=== PATIENT | female | born 2000 | race African-American/Black ===

== ENCOUNTER 2023-02-14 17:57 | Emergency (ER) | payer OTHER ==
[~2023-02-14] VITALS: Ht 165.1 cm; Wt 91.0 kg
[2023-02-14 18:09] VITALS: BP 132/76; PULSE 108; RESP 16; TEMP 98.7; O2SAT 100
[2023-02-14] MEDS ORDERED: LIDOCAINE HCL 1% 20ML VIAL (Pyxis) INJ INFIL ONE (21:00)
[2023-02-14] MEDS ORDERED: IBUP-1525 MT (22:51)
[2023-02-14] MEDS ORDERED: TOPUD MT (22:51)
== END 2023-02-14 23:53 | disposition home or self-care (01) ==
LOC: ER 17:57
DX: S01.81XA Laceration without foreign body of other part of head, initial encounter (principal); S80.02XA Contusion of left knee, initial encounter; V49.49XA Driver injured in collision with other motor vehicles in traffic accident, initial encounter; Y93.89 Activity, other specified; Y92.89 Other specified places as the place of occurrence of the external cause; Y99.8 Other external cause status
CPT/HCPCS: 99283; 73590; J3490

== ENCOUNTER 2023-02-20 13:25 | Emergency (ER) | payer OTHER ==
[~2023-02-20] VITALS: Ht 167.6 cm; Wt 82.0 kg
[~2023-02-20 13:25] MED LIST: IBUP-1525 MT; TOPUD MT
[2023-02-20 14:27] VITALS: BP 135/84; PULSE 99; RESP 18; TEMP 98.2; O2SAT 97
== END 2023-02-20 15:31 | disposition home or self-care (01) ==
LOC: ER 13:25
DX: S01.112D Laceration without foreign body of left eyelid and periocular area, subsequent encounter (principal); Z48.02 Encounter for removal of sutures; X58.XXXD Exposure to other specified factors, subsequent encounter
CPT/HCPCS: 99281